=== PATIENT | female | born 1990 | race Caucasian/White ===

== ENCOUNTER 2017-02-26 01:17 | Emergency (ER) | payer BC, OTHER ==
[2017-02-26 01:26] VITALS: RESP 16; TEMP 97.9
[2017-02-26] MEDS ORDERED: HYDROMORPHONE HCL 2 MG/ML SOL IV ONE ×2 (01:37→03:59)
[2017-02-26] MEDS ORDERED: ONDANSETRON HCL 4 MG/2 ML SOL IV ONE (01:37)
[2017-02-26] MEDS ORDERED: ONDANSETRON HCL 4 MG/2 ML SOL ONE (01:47)
[2017-02-26] MEDS ORDERED: HYDROMORPHONE HCL 2 MG/ML SOL ONE ×2 (01:47→03:59)
[2017-02-26] MEDS: SODIUM CHLORIDE 0.9% FLUSH 10 ML SOL IV PRN ×2 (01:55→02:00)
[2017-02-26 02:02] LABS: BASOPHILS % (AUTO) 1 % (0-3); EOSINOPHILS % (AUTO) 3 % (0-9); HEMATOCRIT 39 % (35-47); MEAN CORPUSCULAR HGB CONC 34.1 gm/dl (32.0-36.0); MEAN CORPUSCULAR VOLUME 87 fL (81-99); MONOCYTES % (AUTO) 6.4 % (0-12); NEUTROPHILS % (AUTO) 64.1 % (37-80)
[2017-02-26 02:13] LABS: APPEARANCE,URINE Cloudy; BILIRUBIN,URINE 1+ (NEGATIVE); COLOR,URINE Amber; GLUCOSE, URINE (UA) NEGATIVE (NEGATIVE); KETONES,URINE TRACE (NEGATIVE); LEUKOCYTE ESTERASE ,URINE NEGATIVE (NEGATIVE); NITRATE,URINE NEGATIVE (NEGATIVE); OCCULT BLOOD,URINE 3+ (NEG-TRACE); PH,URINE 5.5; UROBILINOGEN,URINE 0.2 (0.2-1.0 EU)
[2017-02-26 02:22] LABS: ALBUMIN 3.8 gm/dl (3.4-5.0); CALCIUM 9.2 mg/dl (8.5-10.1); POTASSIUM 3.4 mMol/L (3.5-5.1)
[2017-02-26 02:33] LABS: ICTOTEST,URINE NEGATIVE (NEGATIVE); RBC,URINE TNTC (0-3AV/HPF)
[2017-02-26] MEDS ORDERED: SODIUM CHLORIDE 0.9% 1000ML 1,000 ML IV ONE ×2 (03:53→05:00)
[2017-02-26] MEDS ORDERED: TAMSULOSIN HYDROCHLORIDE 0.4 MG CAP PO ONE (03:54)
[2017-02-26] MEDS ORDERED: TAMSULOSIN HYDROCHLORIDE 0.4 MG CAP ONE (03:56)
[2017-02-26 07:18] VITALS: BP 107/45; PULSE 48; O2SAT 99
== END 2017-02-26 07:06 | disposition home or self-care (01) ==
LOC: ED 01:17
DX: N13.2 Hydronephrosis with renal and ureteral calculous obstruction (principal); Z87.442 Personal history of urinary calculi
CPT/HCPCS: 74176; 80053; 81001; 84703; 85025; 96365; 96366; 96374; 96375; 99284; 99285; J1170; J2405

== ENCOUNTER 2017-03-20 09:39 | Emergency (ER) | payer BC ==
[2017-03-20] MEDS ORDERED: PREDNISONE 20 MG TAB PO ONE (10:02)
[2017-03-20] MEDS ORDERED: KETOROLAC TROMETHAMINE 30 MG/ML SOL IV ONE (10:02)
[2017-03-20 10:12] LABS: CALCIUM 8.9 mg/dl (8.5-10.1); POTASSIUM 3.7 mMol/L (3.5-5.1)
[2017-03-20] MEDS ORDERED: KETOROLAC TROMETHAMINE 30 MG/ML SOL ONE (10:12)
[2017-03-20] MEDS ORDERED: SODIUM CHLORIDE 0.9% 1000ML 1,000 ML IV SCH (10:15)
[2017-03-20] MEDS ORDERED: TAMSULOSIN HYDROCHLORIDE 0.4 MG CAP PO SCH (10:15)
[2017-03-20] MEDS ORDERED: PREDNISONE 20 MG TAB ONE (10:16)
[2017-03-20 10:19] LABS: BASOPHILS % (AUTO) 1 % (0-3); EOSINOPHILS % (AUTO) 3 % (0-9); HEMATOCRIT 40 % (35-47); MEAN CORPUSCULAR HGB CONC 33.9 gm/dl (32.0-36.0); MEAN CORPUSCULAR VOLUME 86 fL (81-99); MONOCYTES % (AUTO) 7.3 % (0-12); NEUTROPHILS % (AUTO) 64.4 % (37-80)
[2017-03-20] MEDS: SODIUM CHLORIDE 0.9% 1000ML 1,000 ML IV SCH ×2 (10:20→11:35)
[2017-03-20] MEDS ORDERED: TAMSULOSIN HYDROCHLORIDE 0.4 MG CAP ONE (10:22)
[2017-03-20] MEDS ORDERED: MORPHINE SULFATE 10 MG/ML SOL IV ONE (10:53)
[2017-03-20] MEDS ORDERED: MORPHINE SULFATE 10 MG/ML SOL ONE (10:55)
[2017-03-20 11:42] VITALS: RESP 18; O2SAT 100
[2017-03-20 11:48] LABS: APPEARANCE,URINE Slightly Cloudy; BILIRUBIN,URINE NEGATIVE (NEGATIVE); COLOR,URINE Dark yellow; GLUCOSE, URINE (UA) NEGATIVE (NEGATIVE); KETONES,URINE NEGATIVE (NEGATIVE); LEUKOCYTE ESTERASE ,URINE TRACE (NEGATIVE); NITRATE,URINE NEGATIVE (NEGATIVE); OCCULT BLOOD,URINE 3+ (NEG-TRACE); UROBILINOGEN,URINE 0.2 (0.2-1.0 EU)
[2017-03-20 12:05] LABS: RBC,URINE 30-35 (0-3AV/HPF)
[2017-03-20 12:35] VITALS: BP 104/58; PULSE 64; TEMP 97.4
== END 2017-03-20 12:32 | disposition home or self-care (01) ==
LOC: ED 09:39
DX: N20.0 Calculus of kidney (principal); Z87.442 Personal history of urinary calculi
CPT/HCPCS: 36415; 74176; 80048; 81001; 84703; 85025; 99285; J1885; J2270

== ENCOUNTER 2017-06-12 21:34 | Observation (INO) | payer BC ==
[2017-06-12] MEDS: SODIUM CHLORIDE 0.9% FLUSH 10 ML SOL IV PRN ×2 (13:30→17:18)
[~2017-06-12 21:34] MED LIST: LIDOCAINE HCL 1% MPF SOL ONE; ONDANSETRON 4 MG ODT BU PRN; ONDANSETRON HCL 4 MG/2 ML SOL IV ONE; ONDANSETRON HCL 4 MG/2 ML SOL ONE; POTASSIUM CHLORIDE 2 MEQ/ML 60 MEQ, LIDOCAINE HCL 1% MDV 2 ML in SODIUM CHLORIDE 0.9% 1... IV ONE; POTASSIUM CHLORIDE 2 MEQ/ML SOL IV ONE
[2017-06-12] MEDS ORDERED: SALINE IV ONE (21:39)
[2017-06-12] MEDS ORDERED: POTASSIUM CHLORIDE IV ONE (21:39)
[2017-06-12] MEDS ORDERED: DEXTROSE IV ONE (21:39)
[2017-06-12] MEDS ORDERED: ONDANSETRON HCL 4 MG/2 ML SOL IV PRN (21:41)
[2017-06-12] MEDS ORDERED: POTASSIUM CHLORIDE 2 MEQ/ML SOL IV ONE (21:48)
[2017-06-12] MEDS: POTASSIUM CHLORIDE 10 MEQ TER PO SCH (21:54)
[2017-06-12] MEDS ORDERED: POTASSIUM CHLORIDE 10 MEQ TER PO STA (23:09)
[2017-06-12] MEDS: DEXTROSE IV ONE (23:11)
[2017-06-12] MEDS: POTASSIUM CHLORIDE IV ONE (23:11)
[2017-06-12] MEDS: SALINE IV ONE (23:11)
[2017-06-13 07:26] LABS: CALCIUM 8.4 mg/dl (8.5-10.1); POTASSIUM 3.4 mMol/L (3.5-5.1)
[2017-06-13] MEDS ORDERED: POTASSIUM CHLORIDE 2 MEQ/ML SOL IV ONE (08:21)
[2017-06-13] MEDS: SALINE IV ONE (08:29)
[2017-06-13] MEDS: POTASSIUM CHLORIDE IV ONE (08:29)
[2017-06-13] MEDS: DEXTROSE IV ONE (08:29)
[2017-06-13] MEDS: ONDANSETRON HCL 4 MG/2 ML SOL IV PRN ×2 (08:31→13:39)
[2017-06-13] MEDS: SODIUM CHLORIDE 0.9% FLUSH 10 ML SOL IV SCH (17:30)
[2017-06-13] MEDS ORDERED: UNISOM 25 MG PO SCH (21:00)
[2017-06-13] MEDS ORDERED: VITAMIN B6 PO SCH (21:00)
[2017-06-13] MEDS ORDERED: VITAMIN B6 100 MG PO SCH (21:00)
[2017-06-13] MEDS ORDERED: UNISOM PO SCH (21:00)
[2017-06-14] MEDS: SODIUM CHLORIDE 0.9% FLUSH 10 ML SOL IV SCH (01:35)
[2017-06-14 02:13] VITALS: RESP 16
[2017-06-14 07:19] LABS: POTASSIUM 3.4 mMol/L (3.5-5.1)
[2017-06-14 08:39] VITALS: BP 109/71; PULSE 48; TEMP 97.6; O2SAT 96
[2017-06-14] MEDS: POTASSIUM CHLORIDE 10 MEQ TER PO SCH ×2 (09:26)
[2017-06-14] MEDS ORDERED: ONDANSETRON 4 MG ODT BU PRN (09:36)
== END 2017-06-14 11:20 | disposition home or self-care (01) ==
LOC: ACUTE CARE 21:34
PROVIDERS: ADMIT Family Medicine; ATTEND Family Medicine
DX: E87.6 Hypokalemia (principal); O21.0 Mild hyperemesis gravidarum; Z3A.15 15 weeks gestation of pregnancy
CPT/HCPCS: 36415; 80048; 84132; 93012; 96365; 96366; J2405; J3480; A9270-GY; J2001

== ENCOUNTER 2017-08-24 11:51 | Emergency (ER) | payer BC, MEDICAID ==
[2017-08-24 12:57] LABS: APPEARANCE,URINE Clear; BILIRUBIN,URINE NEGATIVE (NEGATIVE); COLOR,URINE Yellow; GLUCOSE, URINE (UA) NEGATIVE (NEGATIVE); KETONES,URINE NEGATIVE (NEGATIVE); LEUKOCYTE ESTERASE ,URINE NEGATIVE (NEGATIVE); NITRATE,URINE NEGATIVE (NEGATIVE); OCCULT BLOOD,URINE 1+ (NEG-TRACE); UROBILINOGEN,URINE 0.2 (0.2-1.0 EU)
[2017-08-24 13:13] LABS: BACTERIA TRACE (< 1+); CRYSTALS NEGATIVE (0-3 AVE/HPF); EPITHELIAL CELLS 0-5 (SQUAMOUS); RBC,URINE 0-5 (0-3AV/HPF); WBC,URINE 0-2 (0-5AV/HPF)
[2017-08-24 13:29] VITALS: RESP 16; TEMP 98.3
[2017-08-24 13:45] VITALS: O2SAT 99
[2017-08-24 13:48] VITALS: BP 110/61; PULSE 66
== END 2017-08-24 14:12 | disposition home or self-care (01) | DRG 694 ==
LOC: ED 11:51
DX: N20.0 Calculus of kidney (principal); Z3A.25 25 weeks gestation of pregnancy
CPT/HCPCS: 59025; 81001; 99282; 99283

== ENCOUNTER 2017-10-12 20:50 | Emergency (ER) | payer MEDICAID, OTHER ==
[2017-10-12] MEDS ORDERED: AZITHROMYCIN 250 MG TAB PO ONE (22:21)
[2017-10-12] MEDS ORDERED: BETAMETHASONE 6 MG/ML SUS IM ONE (22:21)
[2017-10-12] MEDS ORDERED: AMPICILLIN 1 GM PDS 2 GM in SODIUM CHLORIDE 0.9% 100 ML 100 ML IV ONE (22:22)
[2017-10-12] MEDS ORDERED: CALCIUM GLUCONATE 10% 100 MG/ML SOL IV PRN (22:24)
[2017-10-12] MEDS ORDERED: MAGNESIUM SULFATE 20GM(PREMIX) 20 GM/500 ML SOL IV ONE (22:24)
[2017-10-12] MEDS ORDERED: AZITHROMYCIN 250 MG TAB ONE (22:27)
[2017-10-12 22:31] LABS: BASOPHILS % (AUTO) 1 % (0-3); EOSINOPHILS % (AUTO) 2 % (0-9); HEMATOCRIT 32 % (35-47); HEMOGLOBIN 10.8 gm/dl (12.0-15.5); LYMPHOCYTES % (AUTO) 24.84 % (10-50); MEAN CORPUSCULAR HEMOGLOBIN 29.9 pg (27.0-32.0); MEAN CORPUSCULAR HGB CONC 33.5 gm/dl (32.0-36.0); MEAN CORPUSCULAR VOLUME 89 fL (81-99); MONOCYTES % (AUTO) 6.5 % (0-12); NEUTROPHILS % (AUTO) 66.1 % (37-80)
[2017-10-12] MEDS ORDERED: AMPICILLIN 1 GM PDS ONE (22:33)
[2017-10-12] MEDS ORDERED: CALCIUM GLUCONATE 10% 100 MG/ML SOL IV ONE (22:33)
[2017-10-12] MEDS ORDERED: BETAMETHASONE 6 MG/ML SUS ONE (22:35)
[2017-10-12 22:45] LABS: ALBUMIN 2.5 gm/dl (3.4-5.0); BILIRUBIN,TOTAL 0.2 mg/dl (0.2-1.0); CARBON DIOXIDE 23.5 mEq/L (21-32); CREATININE 0.61 mg/dl (0.60-1.00); MAGNESIUM 1.7 mg/dl (1.8-2.4); POTASSIUM 3.5 mMol/L (3.5-5.1); TOTAL PROTEIN 6.6 gm/dl (6.4-8.2)
[2017-10-12 22:50] LABS: APPEARANCE,URINE Clear; BILIRUBIN,URINE NEGATIVE (NEGATIVE); COLOR,URINE Yellow; GLUCOSE, URINE (UA) NEGATIVE (NEGATIVE); KETONES,URINE NEGATIVE (NEGATIVE); LEUKOCYTE ESTERASE ,URINE NEGATIVE (NEGATIVE); NITRATE,URINE NEGATIVE (NEGATIVE); OCCULT BLOOD,URINE NEGATIVE (NEG-TRACE); UROBILINOGEN,URINE 0.2 (0.2-1.0 EU)
[2017-10-12 23:01] LABS: BACTERIA NEGATIVE (< 1+); CRYSTALS NEGATIVE (0-3 AVE/HPF); RBC,URINE NEG (0-3AV/HPF); WBC,URINE 0-2 (0-5AV/HPF)
[2017-10-12] MEDS ORDERED: ONDANSETRON HCL 4 MG/2 ML SOL IV ONE (23:11)
[2017-10-12] MEDS ORDERED: ONDANSETRON HCL 4 MG/2 ML SOL ONE (23:13)
[2017-10-13 09:22] VITALS: RESP 18; TEMP 97.6
[2017-10-13 09:35] VITALS: BP 123/80; PULSE 61; O2SAT 95
== END 2017-10-12 23:52 | disposition short-term general hospital (02) ==
LOC: ED 20:50
DX: O42.913 Preterm premature rupture of membranes, unspecified as to length of time between rupture and onset of labor, third trimester (principal); Z3A.32 32 weeks gestation of pregnancy
CPT/HCPCS: 36415; 59025; 80053; 81001; 83735; 84112; 85025; 96365; 96372; 96374; 99283; 99285; J0290; J0610; J0702; J2405; J3475; A9270-GY

== ENCOUNTER 2018-10-08 08:59 | Day surgery (SDC) | payer BC ==
[~2018-10-08 08:59] MED LIST changes: +LIDOCAINE HCL 1% MPF 30 SOL ONE; -LIDOCAINE HCL 1% MPF SOL ONE; -ONDANSETRON 4 MG ODT BU PRN; -ONDANSETRON HCL 4 MG/2 ML SOL IV ONE; -ONDANSETRON HCL 4 MG/2 ML SOL ONE; -POTASSIUM CHLORIDE 2 MEQ/ML 60 MEQ, LIDOCAINE HCL 1% MDV 2 ML in SODIUM CHLORIDE 0.9% 1... IV ONE; -POTASSIUM CHLORIDE 2 MEQ/ML SOL IV ONE; +PROPOFOL 500 MG/50 ML EMU IV ONE
[2018-10-08 10:49] VITALS: TEMP 97.8
[2018-10-08 11:17] VITALS: BP 107/68; PULSE 51; RESP 20; O2SAT 97
== END 2018-10-08 11:28 | disposition home or self-care (01) ==
LOC: SURG 08:59
PROVIDERS: ATTEND Surgery
DX: K62.5 Hemorrhage of anus and rectum (principal); R10.9 Unspecified abdominal pain; R19.7 Diarrhea, unspecified; K60.2 Anal fissure, unspecified
CPT/HCPCS: J2001; J2704